=== PATIENT | male | born 1960 | race Caucasian/White ===

== ENCOUNTER → 2022-11-15 | Outpatient (CLI) | payer BC, SELFPAY ==
[2022-11-17 08:36] LABS: Anion Gap 10 (5-15); BUN 24 mg/dL (7-18); Calcium,Total 9.3 mg/dL (8.5-10.1); Chloride 105 mmol/L (98-107); EST Glomerular Filtration Rate 66 mL/min (>60); Est Glom Filt Rate - Afr Amer 79 mL/min (>60); Glucose 176 mg/dL (74-106); Potassium 4.7 mmol/L (3.5-5.1); Sodium Level 140 mmol/L (136-145)
== END | disposition home or self-care (01) ==
PROVIDERS: PCP Physician Assistant; Visit Provider Internal Medicine Cardiovascular Disease
DX: I48.20 Chronic atrial fibrillation, unspecified (principal); Z79.01 Long term (current) use of anticoagulants
CPT/HCPCS: 36415; 80048; 80162

== ENCOUNTER → 2023-01-09 | Outpatient (CLI) | payer BC, SELFPAY ==
[2023-01-09 09:17] LABS: AST(SGOT) 15 U/L (15-37); Alanine Aminotransfer ALT/SGPT 27 U/L (16-61); Albumin, Serum 3.4 g/dL (3.2-5.0); Alkaline Phosphatase 46 U/L (45-117); Anion Gap 6 (5-15); BUN 23 mg/dL (7-18); BUN/Creat Ratio 25.2 RATIO (10-20); Bilirubin, Direct 0.12 mg/dL (0.00-0.30); Chloride 107 mmol/L (98-107); Cholesterol 259 mg/dL (200); Creatinine, Serum 0.91 mg/dL (0.70-1.30); EST Glomerular Filtration Rate 90 mL/min (>60); Est Glom Filt Rate - Afr Amer 109 mL/min (>60); Globulin 4.1 g/dL (2.2-4.2); Glucose 124 mg/dL (74-106); High Density Lipoprotein 40 mg/dL; Potassium 4.1 mmol/L (3.5-5.1); Protein, Total 7.5 g/dL (6.4-8.2); Sodium Level 140 mmol/L (136-145); Triglycerides 257 mg/dL; Very Low Density Lipoprotein 51 mg/dL (5-40)
== END | disposition home or self-care (01) ==
PROVIDERS: PCP Physician Assistant; Referring Provider Internal Medicine Cardiovascular Disease; Visit Provider Internal Medicine Cardiovascular Disease
DX: I43 Cardiomyopathy in diseases classified elsewhere (principal); I48.20 Chronic atrial fibrillation, unspecified; E11.9 Type 2 diabetes mellitus without complications; E78.00 Pure hypercholesterolemia, unspecified; Z79.899 Other long term (current) drug therapy
CPT/HCPCS: 36415; 80048; 80061; 80076

== ENCOUNTER → 2024-06-10 | Outpatient (CLI) | payer BC, SELFPAY ==
[2024-06-10 14:25] LABS: Absolute Lymphocyte Count 1.86 X10^3/uL (0.83-4.51); Absolute Neutrophil Count 4.9 X10^3/uL (2.0-7.7); Basophil# 0.05 X10^3/uL; Basophil% 0.7 % (0-1); Eosinophil# 0.06 X10^3/uL; Eosinophils% 0.8 % (0-5); Hematocrit 38.9 % (40-54); Hemoglobin 13.2 g/dL (13.0-16.5); Lymphocyte # 1.86 X10^3/ul (0.83-4.51); Lymphocyte % 24.6 % (19-41); Mean Corp Hgb Conc 33.9 g/dL (32-36); Mean Corpuscular Hgb 28.9 pg (27.0-32.0); Mean Corpuscular Volume 85.1 fL (80-94); Mean Platelet Vol. 10.8 fl (6.2-12.0); Monocyte# 0.68 X10^3/uL; NRBC Flagged by Analyzer 0 % (0-5); Neutrophil # 4.87 X10^3/uL (2.7-7.7); Neutrophil % 64.4 % (47-70); Platelet Count 193 K/mm3 (150-450); RBC Distribution Width CV 13.3 % (11.6-14.6); RBC Distribution Width SD 41.3 fl (35.1-43.9); Red Blood Count 4.57 M/mm3 (4.6-6.2); White Blood Count 7.6 K/mm3 (4.4-11.0)
[2024-06-10 14:59] LABS: Anion Gap 5 (5-15); BUN 18 mg/dL (7-18); BUN/Creat Ratio 16.2 RATIO (10-20); Chloride 105 mmol/L (98-107); Creatinine, Serum 1.11 mg/dL (0.70-1.30); EST Glomerular Filtration Rate 71 mL/min (>60); Est Glom Filt Rate - Afr Amer 86 mL/min (>60); Glucose 288 mg/dL (74-106); Potassium 3.9 mmol/L (3.5-5.1); Sodium Level 138 mmol/L (136-145); Thyroid Stim Hormone (TSH) 0.971 uIU/mL (0.358-3.740)
== END | disposition home or self-care (01) ==
LOC: LAB 13:24
PROVIDERS: PCP Physician Assistant; Referring Provider Nurse Practitioner Gerontology; Visit Provider Nurse Practitioner Gerontology
DX: R53.83 Other fatigue (principal)
CPT/HCPCS: 36415; 80048; 84443; 85025

== ENCOUNTER → 2024-06-30 | Outpatient (CLI) | payer BC, SELFPAY ==
--- NOTE | 2024-06-30 12:41 | ECHOCS_ITS ---
Reason For Study: HTN Procedure This was a 2D Doppler, Color Flow transthoracic echocardiogram. Contrast injection was performed. Exam performed in department. Left Ventricle Normal LV size. Moderate concentric left ventricular hypertrophy. Left ventricular systolic function is normal. The left ventricular ejection fraction is 65 %. No regional wall motion abnormalities noted. Right Ventricle Normal RV size. Normal systolic function. Atria The left atrium is moderately enlarged. Normal right atrium. Mitral Valve Normal mitral valve. Tricuspid Valve Normal tricuspid valve. Mild tricuspid valve insufficiency. Pulmonary artery systolic pressure is 30 mmHg. Aortic Valve Trisinus/trileaflet aortic valve. Pulmonic Valve Normal pulmonic valve. Mild (1+) pulmonic valve insufficiency. Great Vessels Mild to moderately dilated aortic root. The pulmonary artery is normal size. Inferior vena cava collapse with respiration. Pericardium/Pleural No pericardial effusion. Medication 22 gauge I.V. with prn adaptor inserted into left arm. Diluted definity 2ml given slow IV push to enhance endocardial definition. MMode/2D Measurements & Calculations LVIDd: 5.0 cm IVSd: 1.8 cm LVOT diam: 2.9 cm LVIDs: 4.1 cm LVPWd: 1.4 cm RVDd: 4.5 cm FS: 16.4 % LVOT area: 6.8 cm2 Ao root diam: 4.2 cm asc Aorta Diam: 4.1 cm LAV(MOD-bp): 105.0 ml LAV(MOD-bp) Indexed: 48.3 ml/m2 LAV(MOD-sp2): 96.4 ml LAV(MOD-sp4): 103.5 ml SV(MOD-sp4): 65.3 ml SV(sp4-el): 69.6 ml LVAd ap4: 35.2 cm2 LVLd ap4: 7.8 cm EDV(MOD-sp4): 129.0 ml EDV(sp4-el): 135.2 ml LVAs ap4: 23.1 cm2 LVLs ap4: 6.9 cm ESV(MOD-sp4): 63.7 ml ESV(sp4-el): 65.7 ml EF(MOD-sp4): 50.6 % EF(sp4-el): 51.4 % Ao sinus diam: 4.[address] Junction: 3.8 cm LA A4 area: 29.8 cm2 LA dimension(2D): 5.9 cm TAPSE: 1.7 cm RA A4 area: 27.2 cm2 Doppler Measurements & Calculations MV E max cookie: 81.6 cm/sec MV V2 max: 89.3 cm/sec Ao V2 max: 98.6 cm/sec MV max P.2 mmHg Ao max P.9 mmHg MV V2 mean: 43.2 cm/sec Ao V2 mean: 69.7 cm/sec MV mean P.95 mmHg Ao mean P.3 mmHg MV V2 VTI: 23.7 cm Ao V2 VTI: 20.8 cm MVA(VTI): 3.8 cm2 AV (velocity ratio): 0.64 AJ(I,D): 4.4 cm2 AJ(V,D): 4.6 cm2 LV V1 max: 66.6 cm/sec MR max cookie: 529.0 cm/sec SV(LVOT): 90.6 ml LV V1 max P.8 mmHg MR max P.9 mmHg LV V1 mean P.1 mmHg MR mean cookie: 409.6 cm/sec LV V1 mean: 48.9 cm/sec MR mean P.7 mmHg LV V1 VTI: 13.3 cm MR VTI: 193.3 cm PA V2 max: 70.1 cm/sec PI end-d cookie: 169.9 cm/sec TR max cookie: 256.0 cm/sec PA max PG (full): 0.85 mmHg TR max P.2 mmHg ECHO/Echo Complete W/ Contrast Interpretation Summary Normal LV size. Left ventricular systolic function is normal. The left ventricular ejection fraction is 65 %. Pulmonary artery systolic pressure is 30 mmHg. Mild to moderately dilated aortic root. Contrast injection was performed. Ordering Physician: Lety Gould Referring Physician: Lety Gould Performed By: Maurice José RCS
== END | disposition home or self-care (01) ==
LOC: CVS 12:40
PROVIDERS: PCP Physician Assistant; Referring Provider Nurse Practitioner Gerontology; Visit Provider Nurse Practitioner Gerontology
DX: I10 Essential (primary) hypertension (principal)
CPT/HCPCS: 93306; Q9957; A4216; C8929

== ENCOUNTER → 2024-12-17 | Outpatient (CLI) | payer BC, SELFPAY ==
[2024-12-17 09:39] LABS: Cholesterol 236 mg/dL (<=200); High Density Lipoprotein 46 mg/dL; Low Density Lipoprotein Calc. 150 mg/dL; Triglycerides 201 mg/dL; Very Low Density Lipoprotein 40 mg/dL (5-40); cholesterol:hdl ratio screen 5.19
== END | disposition home or self-care (01) ==
LOC: LAB 08:00
PROVIDERS: PCP Physician Assistant; Referring Provider Internal Medicine Cardiovascular Disease; Visit Provider Internal Medicine Cardiovascular Disease
DX: E78.5 Hyperlipidemia, unspecified (principal)
CPT/HCPCS: 36415; 80061

== ENCOUNTER 2025-06-15 10:58 | Outpatient (RCR) | payer BC, SELFPAY ==
[2025-06-15 12:20] LABS: Prothrombin Time (Protime)PT. 16.7 SECONDS (11.7-14.9)
[2025-06-15 12:44] LABS: AST(SGOT) 16 U/L (<=37); Alanine Aminotransfer ALT/SGPT 20 U/L (<=46); Albumin, Serum 3.9 g/dL (3.4-4.8); Alkaline Phosphatase 41 U/L (40-129); Anion Gap 9 (5-15); BUN 28 mg/dL (4-19); BUN/Creat Ratio 27.0 RATIO (10-20); Calcium,Total 9.5 mg/dL (7.6-11.0); Carbon Dioxide 26.0 mmol/L (21.0-32.0); Chloride 101 mmol/L (98-108); Cholesterol 258 mg/dL (<=200); Globulin 3.2 g/dL (2.2-4.2); Glucose 225 mg/dL (70-99); Low Density Lipoprotein Calc. 183 mg/dL; Potassium 4.2 mmol/L (3.3-5.1); Triglycerides 170 mg/dL; Very Low Density Lipoprotein 34 mg/dL (5-40); cholesterol:hdl ratio screen 6.23
== END 2025-06-15 18:00 | disposition home or self-care (01) ==
LOC: LAB 10:58
PROVIDERS: PCP Physician Assistant; Referring Provider Physician Assistant Medical; Visit Provider Physician Assistant Medical
DX: I77.810 Thoracic aortic ectasia (principal); I42.8 Other cardiomyopathies; Z79.01 Long term (current) use of anticoagulants; I48.20 Chronic atrial fibrillation, unspecified
CPT/HCPCS: 36415; 80053; 80061; 85610

== ENCOUNTER 2025-07-07 08:40 | Outpatient (RCR) | payer BC, SELFPAY ==
[2025-06-24 09:24] LABS: Prothrombin Time (Protime)PT. 23.6 SECONDS (11.7-14.9)
[2025-07-07 09:17] LABS: Prothrombin Time (Protime)PT. 20.8 SECONDS (11.7-14.9)
== END 2025-07-18 18:00 | disposition home or self-care (01) ==
LOC: LAB 08:40
PROVIDERS: PCP Physician Assistant; Referring Provider Physician Assistant Medical; Visit Provider Physician Assistant Medical
DX: I77.810 Thoracic aortic ectasia (principal); I42.8 Other cardiomyopathies; Z79.01 Long term (current) use of anticoagulants; I48.20 Chronic atrial fibrillation, unspecified
CPT/HCPCS: 36415; 85610

== ENCOUNTER 2025-07-20 15:27 | Outpatient (RCR) | payer BC, SELFPAY ==
[2025-07-20 17:08] LABS: Prothrombin Time (Protime)PT. 25.6 SECONDS (11.7-14.9)
== END 2025-07-20 18:00 | disposition home or self-care (01) ==
LOC: LAB 15:27
PROVIDERS: PCP Physician Assistant; Referring Provider Physician Assistant Medical; Visit Provider Physician Assistant Medical
DX: I77.810 Thoracic aortic ectasia (principal); I48.0 Paroxysmal atrial fibrillation; Z79.01 Long term (current) use of anticoagulants; I48.20 Chronic atrial fibrillation, unspecified
CPT/HCPCS: 36415; 85610

== ENCOUNTER → 2025-07-20 | Outpatient (CLI) | payer BC, SELFPAY ==
--- NOTE | 2025-07-20 15:01 | CT_ITS ---
PROCEDURE: CHEST WITH CONTRAST 07/20/2025 REASON FOR EXAM: DIALTED AORTIC ROOT TECHNIQUE: Procedure Code: CTCHW Modality: CT Procedure: CHEST WITH CONTRAST Coronal and Sagittal reconstruction series were provided. CONTRAST: Isovue 370 VOLUME: 100 mL One or more dose reduction techniques were used (e.g., Automated exposure control, adjustment of the mA and/or kV according to patient size, use of iterative reconstruction technique). RADIATION DOSE SUMMARY: CTDlvol: 41.50 mGy DLP: 622.05 mGycm COMPARISON: None FINDINGS: Lung windows show the lungs to be normally expanded. There is a 1.2 cm noncalcified nodule in the right upper lobe on axial image 37, there is a noncalcified 8 mm nodule in the left lower lobe on axial image 48, and another 7 mm noncalcified nodule in the left lower lobe on axial image 68. Since there are no previous studies available for comparison, these need either further evaluation with PET/CT scan or a short-term follow-up to assess stability. There are chronic interstitial changes in both lung ruiz without a superimposed infiltrate or effusion. Soft tissue windows show a normal-appearing thyroid gland. No suspicious axillary, mediastinal or perihilar adenopathy. The thoracic aorta is free of aneurysm or dissection. It measures 4.1 cm just distal to the root. There are coronary artery calcifications. Limited cuts through the upper abdomen show fatty infiltration of the liver without a discrete lesion. Bony structures show degenerative change CT/Chest WITH Contrast IMPRESSION: Coronary artery calcification (CAC) is is present There are noncalcified nodules in both lung ruiz, since there are no previous studies available for comparison, patient should either undergo short-term, 3 to 6 month follow-up to assess stability based on level of concern, or undergo further evaluation with PET/CT scan No organized infiltrate or effusion Chronic interstitial changes No suspicious adenopathy Reading Location: [place] [id number]
[2025-07-20 15:32] LABS: CREATININE FINGERSTICK < 1.0 mg/dL (0.70-1.30); EGFR FINGERSTICK > 60.0000 mL/min (>60)
== END | disposition home or self-care (01) ==
LOC: CT 14:57
PROVIDERS: PCP Physician Assistant; Referring Provider Physician Assistant Medical; Visit Provider Physician Assistant Medical
DX: I77.810 Thoracic aortic ectasia (principal); I48.20 Chronic atrial fibrillation, unspecified; I42.8 Other cardiomyopathies; Z79.01 Long term (current) use of anticoagulants
CPT/HCPCS: 71260; Q9967

== ENCOUNTER 2025-09-01 10:06 | Outpatient (RCR) | payer BC, SELFPAY ==
[2025-08-19 11:19] LABS: Prothrombin Time (Protime)PT. 19.6 SECONDS (11.7-14.9)
[2025-09-01 10:35] LABS: Prothrombin Time (Protime)PT. 18.7 SECONDS (11.7-14.9)
== END 2025-09-17 18:00 | disposition home or self-care (01) ==
LOC: LAB 10:06
PROVIDERS: PCP Physician Assistant; Referring Provider Physician Assistant Medical; Visit Provider Physician Assistant Medical
DX: I77.810 Thoracic aortic ectasia (principal); I42.8 Other cardiomyopathies; Z79.01 Long term (current) use of anticoagulants; I49.2 Junctional premature depolarization
CPT/HCPCS: 36415; 85610

== ENCOUNTER 2025-10-07 08:22 | Outpatient (RCR) | payer BC, SELFPAY ==
[2025-09-30 08:14] LABS: Prothrombin Time (Protime)PT. 17.6 SECONDS (11.7-14.9)
[2025-10-07 08:52] LABS: Prothrombin Time (Protime)PT. 23.2 SECONDS (11.7-14.9)
== END 2025-10-07 18:00 | disposition home or self-care (01) ==
LOC: LAB 08:22
PROVIDERS: PCP Physician Assistant; Referring Provider Physician Assistant Medical; Visit Provider Physician Assistant Medical
DX: I77.810 Thoracic aortic ectasia (principal); I42.8 Other cardiomyopathies; Z79.01 Long term (current) use of anticoagulants; I48.20 Chronic atrial fibrillation, unspecified
CPT/HCPCS: 36415; 85610